=== PATIENT | male | born 1960 | race Caucasian/White ===

== ENCOUNTER 2018-10-18 08:47 | Emergency (ER) | payer OTHER ==
[~2018-10-18] VITALS: Ht 175.3 cm; Wt 79.4 kg
[2018-10-18 09:21] VITALS: BP 152/62
[2018-10-18] MEDS: METHOCARBAMOL 500 MG TAB PO ONE (09:30)
[2018-10-18] MEDS: KETOROLAC TROMETH 60MG/2ML VIAL IM ONE (09:30)
== END 2018-10-18 09:57 | disposition home or self-care (01) ==
LOC: ER 08:47
DX: M54.5 Low back pain (principal); M25.572 Pain in left ankle and joints of left foot; G89.29 Other chronic pain
CPT/HCPCS: 72070; 96372; 99283; J1885